=== PATIENT | female | born 1990 | race Two or more races ===

== ENCOUNTER 2024-07-27 21:36 | Emergency (ER) | payer SELFPAY ==
[~2024-07-27] VITALS: Ht 162.6 cm; Wt 82.2 kg
[2024-07-27] MEDS ORDERED: ONDANSETRON ODT 4 MG TAB.RAPDIS ONE (23:49)
[2024-07-27] MEDS ORDERED: HYDROCODONE/APAP 5-325MG TABLET ONE (23:50)
[2024-07-27] MEDS: HYDROCODONE/APAP 5-325MG TABLET PO ONE (23:53)
[2024-07-27] MEDS: ONDANSETRON ODT 4 MG TAB.RAPDIS SL ONE (23:53)
[2024-07-28] MEDS ORDERED: HYDR-4209 PO (01:29)
[2024-07-28] MEDS ORDERED: ONDA4TAB11 PO (01:29)
[2024-07-28 01:36] VITALS: BP 128/77; TEMP 98; O2SAT 98
== END 2024-07-28 01:36 | disposition left against medical advice (07) ==
LOC: ER 21:36
DX: R51.9 Headache, unspecified (principal); R42 Dizziness and giddiness; R11.2 Nausea with vomiting, unspecified; M54.2 Cervicalgia; W22.8XXA Striking against or struck by other objects, initial encounter; Y93.89 Activity, other specified; Y92.89 Other specified places as the place of occurrence of the external cause; Y99.8 Other external cause status
CPT/HCPCS: 70450; 72125; A4606; A4663; Q0162